=== PATIENT | female | born 1995 | race African-American/Black ===

== ENCOUNTER 2016-11-29 10:31 | Emergency (ER) | payer OTHER ==
[2016-11-29] MEDS ORDERED: IBUPROFEN 800 MG TAB As Ordered ONE (11:48)
[2016-11-29 12:04] LABS: BASO % 0.5 % (0.0-1.0); EOS # 0.1 K/mm3 (0.0-0.50); EOS % 1.4 % (0.0-3.0); LARGE UNSTAINED CELL # 0.1 K/mm3 (0.0-0.4); LARGE UNSTAINED CELL % 1.4 % (0.0-4.0); LYMPH # 2.3 K/mm3 (1.5-6.5); LYMPH % 27.6 % (24.0-44.0); MEAN CORPUSCULAR HEMOGLOBIN 22.9 pg (27.0-33.0); MEAN CORPUSCULAR HGB CONC 32.2 g/dl (32.0-36.5); MONO # 0.4 K/mm3 (0.0-0.8); MONO % 5.2 % (0.0-5.0); NEUTROPHILS # 5.4 K/mm3 (1.8-7.7); NEUTROPHILS % 63.8 % (36.0-66.0); PLATELET COUNT, AUTOMATED 238 k/mm3 (150-450); RED CELL DISTRIBUTION WIDTH 14.3 % (11.5-14.5); WHITE BLOOD COUNT 8.4 K/mm3 (4.0-10.0)
--- NOTE | 2016-11-29 12:58 | EDDOCDS ---
Nurse's Notes [facility] Name: Janusz Mathur Age: 21 yrs Sex: Female : 1995 Arrival Date: 11/29/2016 Time: 10:31 Bed PR Private MD: GALEN Lawton Diagnosis: Irregular menstruation, unspecified;Pain and other conditions associated with female genital organs and menstrual cycle Presentation: 11/29 10:37 Presenting complaint: Patient states: having bt red vaginal bleeding today - started bcj with brown drainage yesterday. has changed pad x 2 this am. denies . LMP 11/02. + cramping. denies dysuria. Risk factors: The patient reports no loss of conciousness prior to arrival. This patient has not had a hysterectomy. This patient has not begun menopause. Adult Sepsis Screening: The patient does not have new or worsening altered mentation. Patient's respiratory rate is less than 22. Systolic blood pressure is greater than 100. Patient has a qSOFA score of 0- Negative Sepsis Screen. Suicide/Homicide risk assessment- the patient denies having any suicidal and/or homicidal ideations and does not present with any other emotional, behavioral or mental health complaints. 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 Transition of care: patient was not received from another setting of care. 10:37 Acuity: TORO Level 3 bcj 10:37 Method Of Arrival: Walkin/Carried/Asstd bcj Triage Assessment: 10:40 General: Appears in no apparent distress, comfortable, Behavior is cooperative. Pain: bcj Location: abdomen Pain currently is 8 out of 10 on a pain scale. HIV screening NA for this visit Offered previously. : Reports vaginal bleeding that is bright red with clots heavy flow. 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 none - PMHx: none; - PSHx: none; - Social history: Smoking status: Patient states was never smoker of tobacco. No barriers to communication noted, The patient speaks fluent Fijian, Speaks appropriately for age. - Family history: Not pertinent. - : The pt / caregiver states he / she is not on anticoagulants. Home medication list is obtained from the patient. - Exposure Risk Screening:: None identified. Screenin:57 Screening information is obtained from the patient. Fall risk: No risks identified. ms2 Assistance ADL's: requires no assistance with activities of daily living. Abuse/DV Screen: The patient / caregiver reports he/she is: not in a situation that causes fear, pain or injury. Nutritional screening: No deficits noted. Advance Directives: Currently, there is no health care proxy. There is no active DNR order. There is no living will. There is no Power of [employer]. Advance directive information has not previously been placed in an [facility] medical record. Further advance directive information is declined. home support is adequate. Assessment: 12:55 Adult Sepsis Screening: The patient does not have new or worsening altered mentation. ms2 Patient's respiratory rate is less than 22. Systolic blood pressure is greater than 100. Patient has a qSOFA score of 0- Negative Sepsis Screen. General: Appears in no apparent distress, Behavior is cooperative. Pain: Denies pain. Neurological: Level of Consciousness is awake, alert, obeys commands. Respiratory: No deficits noted. Airway is patent Respiratory effort is even, unlabored, Respiratory pattern is regular, symmetrical. GI: Abdomen is non- distended obese. :. Derm: Skin is pink, warm & dry. Musculoskeletal: Range of motion intact in all extremities. Vital Signs: 10:33 BP 154 / 89; Pulse 82; Resp 18; Temp 98.5; Pulse Ox 100% ; Weight 79.38 kg; Height 4 elp ft. 11 in. (149.86 cm); Pain 8/10; 12:35 BP 154 / 85; Pulse 79; Resp 18; Temp 97.1(O); Pulse Ox 98% on R/A; Pain 7/10; ct3 10:33 Body Mass Index 35.35 (79.38 kg, 149.86 cm) el Vitals: 10:33 Log In Time: November 29, 2016 at 10:32. [facility] ED Course: 10:32 Patient visited by Mary Chamberlain PCA. elp 10:32 Patient moved to Waiting elp 10:33 Jered [facility] is Private Physician. elp 10:34 Patient visited by Mary Chamberlain PCA. elp 10:34 Patient moved to Pre RCE elp 10:39 Triage Initiated [facility] 10:40 Patient visited by Roosevelt Zuniga RN. bcj 10:54 Patient moved to Triage 3 ct3 11:13 Krzysztof Alejo PA-C is PHCP. ar2 11:13 Thom Fernandes MD is Attending Physician. ar2 11:13 Patient visited by Krzysztof Alejo PA-C. ar2 11:36 Patient visited by Leni Pool PCA. ct3 11:36 UA Sent. ct3 11:36 CBC with Diff Sent. ct3 11:52 Patient moved to TR1 ms2 12:05 [facility] Payment Agreement was scanned into [employer] and attached to record. lg 12:09 Patient visited by Leni Pool PCA. ct3 12:19 Patient moved to PR / 25 ct3 12:36 Patient visited by Leni Pool PCA. ct3 12:43 Jered [facility] is Referral Physician. ar2 12:43 Javan Betancourt OB is Referral Physician. ar2 12:56 The patient / caregiver is instructed regarding the plan of care and ED course. ms2 12:56 No IV's were initiated during this patient's visit. No procedures done that require ms2 assistance. Administered Medications: 11:50 Drug: Ibuprofen 800 mg Route: PO; ms2 Point of Care Testing: Urine : 11:36 hCG Reading: Negative; Control Reading: Positive; ct3 Ranges: Order Results: Lab Order: CBC with Diff; SPEC'M 11/29/16 11:35 Test: WHITE BLOOD COUNT; Value: 8.4; Range: 4.0-10.0; Units: K/mm3; Status: F Test: RED BLOOD COUNT; Value: 5.40; Range: 4.00-5.40; Units: M/mm3; Status: F Test: HEMOGLOBIN; Value: 12.3; Range: 12.0-16.0; Units: g/dl; Status: F Test: HEMATOCRIT; Value: 38.3; Range: 36.0-47.0; Units: %; Status: F Test: MEAN CORPUSCULAR VOLUME; Value: 71.0; Range: 80.0-96.0; Abnormal: Below low normal; Units: fl; Status: F Test: MEAN CORPUSCULAR HEMOGLOBIN; Value: 22.9; Range: 27.0-33.0; Abnormal: Below low normal; Units: pg; Status: F Test: MEAN CORPUSCULAR HGB CONC; Value: 32.2; Range: 32.0-36.5; Units: g/dl; Status: F Test: RED CELL DISTRIBUTION WIDTH; Value: 14.3; Range: 11.5-14.5; Units: %; Status: F Test: PLATELET COUNT, AUTOMATED; Value: 238; Range: 150-450; Units: k/mm3; Status: F Test: NEUTROPHILS %; Value: 63.8; Range: 36.0-66.0; Units: %; Status: F Test: LYMPH %; Value: 27.6; Range: 24.0-44.0; Units: %; Status: F Test: MONO %; Value: 5.2; Range: 0.0-5.0; Abnormal: Above high normal; Units: %; Status: F Test: EOS %; Value: 1.4; Range: 0.0-3.0; Units: %; Status: F Test: BASO %; Value: 0.5; Range: 0.0-1.0; Units: %; Status: F Test: LARGE UNSTAINED CELL %; Value: 1.4; Range: 0.0-4.0; Units: %; Status: F Test: NEUTROPHILS #; Value: 5.4; Range: 1.8-7.7; Units: K/mm3; Status: F Test: LYMPH #; Value: 2.3; Range: 1.5-6.5; Units: K/mm3; Status: F Test: MONO #; Value: 0.4; Range: 0.0-0.8; Units: K/mm3; Status: F Test: EOS #; Value: 0.1; Range: 0.0-0.50; Units: K/mm3; Status: F Test: BASO #; Value: 0.0; Range: 0.0-0.2; Units: K/mm3; Status: F Test: LARGE UNSTAINED CELL #; Value: 0.1; Range: 0.0-0.4; Units: K/mm3; Status: F Lab Order: UA; SPEC'M 11/29/16 11:35 Test: APPEARANCE, URINE; Value: CLOUDY; Range: CLEAR; Abnormal: Above high normal; Status: F Test: COLOR, URINE; Value: YELLOW; Range: YELLOW; Status: F Test: PH,URINE; Value: 8.0; Range: 5.0-9.0; Units: UNITS; Status: F Test: SPECIFIC GRAVITY URINE AUTO; Value: 1.014; Range: 1.002-1.035; Status: F Test: PROTEIN, URINE AUTO; Value: 1+; Range: NEGATIVE; Abnormal: Above high normal; Units: mg/dL; Status: F Test: GLUCOSE, URINE (UA) AUTO; Value: NEGATIVE; Range: NEGATIVE; Units: mg/dL; Status: F Test: KETONE, URINE AUTO; Value: NEGATIVE; Range: NEGATIVE; Units: mg/dL; Status: F Test: UROBILINOGEN, URINE AUTO; Value: 0.2; Range: 0.0-2.0; Units: mg/dL; Status: F Test: BILIRUBIN, URINE AUTO; Value: NEGATIVE; Range: NEGATIVE; Status: F Test: NITRITE, URINE AUTO; Value: NEGATIVE; Range: NEGATIVE; Status: F Test: LEUKOCYTE ESTERASE, URINE AUTO; Value: TRACE; Range: NEGATIVE; Abnormal: Above high normal; Status: F Test: BLOOD, URINE BLOOD; Value: 3+; Range: NEGATIVE; Abnormal: Above high normal; Status: F Test: WBC, URINE AUTO; Value: 8; Range: 0-3; Abnormal: Above high normal; Units: /HPF; Status: F Test: RBC, URINE AUTO; Value: TNTC; Range: 0-3; Abnormal: Above high normal; Units: /HPF; Status: F Test: BACTERIA, URINE AUTO; Value: NEGATIVE; Range: NEGATIVE; Status: F Test: SQUAMOUS EPITHELIAL CELL UR AU; Value: 0; Range: 0-6; Units: /HPF; Status: F Test: HYALINE CAST, URINE AUTO; Value: 0; Range: 0-1; Units: /LPF; Status: F Outcome: 12:43 Discharge ordered by Provider. ar2 12:56 Discharge Assessment: patient administered narcotics - no. The following High Risk ms2 Discharge criteria are identified: None. Discharged to home ambulatory, with significant other. Condition: stable. Discharge instructions given to patient, Instructed on discharge instructions, follow up and referral plans. medication usage, Demonstrated understanding of instructions, medications, Pt was receptive of discharge instructions/ teaching. Prescriptions given X one faxed. No special radiology studies were completed. Property sent home with patient. 12:58 Patient left the ED. ms2 Signatures: Ilya Ha RN RN ms2 Roosevelt Zuniga RN RN Jareth Sy, Froylan Reg lg Krzysztof Alejo, PAULO BATES ar2 Pool, Leni, [employer] [facility] [employer] ct3 Patchen, Mary, [employer] [facility] [employer] elp MTDD
--- NOTE | 2016-11-29 12:58 | EDDOCDS ---
Physician Documentation [facility] [place] Name: Janusz Mathur Age: 21 yrs Sex: Female : 1995 Arrival Date: 11/29/2016 Time: 10:31 Bed PR / Private MD: GALEN Lawton Disposition: 11/29/16 12:43 Discharged to Home/Self Care. Impression: Irregular menstruation, unspecified, Pain and other conditions associated with female genital organs and menstrual cycle. - Condition is Stable. - Discharge Instructions: Menorrhagia, Metrorrhagia. - Prescriptions for Ibuprofen 800 mg Oral Tablet - take 1 tablet by ORAL route every 8 hours As needed take with food; 30 tablet. - Medication Reconciliation, Local Pharmacy Hours form. - Follow up: GALEN Lawton; When: Call to arrange an appointment; Reason: Continuance of care. Follow up: Javan Betancourt, OB; When: As needed; Reason: Recheck today's complaints, To establish care. - Problem is new. - Symptoms are unchanged. Historical: - Allergies: no known allergies; - Home Meds: 1. none - PMHx: none; - PSHx: none; - Social history: Smoking status: Patient states was never smoker of tobacco. No barriers to communication noted, The patient speaks fluent Martiniquais, Speaks appropriately for age. - Family history: Not pertinent. - : The pt / caregiver states he / she is not on anticoagulants. Home medication list is obtained from the patient. - Exposure Risk Screening:: None identified. 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 11 in. (149.86 cm); Pain 8/10; 12:35 BP 154 / 85; Pulse 79; Resp 18; Temp 97.1(O); Pulse Ox 98% on R/A; Pain 7/10; ct3 10:33 Body Mass Index 35.35 (79.38 kg, 149.86 cm) elp MDM: 11:25 UCG by Nursing ordered. ar2 11:25 Ibuprofen 800 mg PO once; ADMINISTER IF NEGATIVE UCG ordered. ar2 11:26 CBC with Diff Ordered. EDMS 11:26 UA Ordered. EDMS 12:04 Financial registration complete. lg 12:05 [facility] Payment Agreement was scanned into [employer] and attached to record. lg 12:41 CBC with Diff Reviewed. ar2 12:41 UA Reviewed. ar2 Point of Care Testing: Urine : 11:36 hCG Reading: Negative; Control Reading: Positive; ct3 Ranges: Administered Medications: 11:50 Drug: Ibuprofen 800 mg Route: PO; ms2 Signatures: Dispatcher [employer] EDMS Ilya Ha RN RN ms2 Roosevelt Zuniga RN RN Jareth Sy, Reg Reg lg Krzysztof Alejo, PAULO PAKeren ar2 The chart was reviewed and I authenticate all verbal orders and agree with the evaluation and treatment provided.Attachments: 12:05 [facility] Payment Agreement lg MTDD
--- NOTE | 2016-12-01 13:58 | EDDOCDS ---
Nurse's Notes [facility] Name: Janusz Mathur Age: 21 yrs Sex: Female : 1995 Arrival Date: 11/29/2016 Time: 10:31 Bed PR Private MD: GALEN Lawton Diagnosis: Irregular menstruation, unspecified;Pain and other conditions associated with female genital organs and menstrual cycle Presentation: 11/29 10:37 Presenting complaint: Patient states: having bt red vaginal bleeding today - started bcj with brown drainage yesterday. has changed pad x 2 this am. denies . LMP 11/02. + cramping. denies dysuria. Risk factors: The patient reports no loss of conciousness prior to arrival. This patient has not had a hysterectomy. This patient has not begun menopause. Adult Sepsis Screening: The patient does not have new or worsening altered mentation. Patient's respiratory rate is less than 22. Systolic blood pressure is greater than 100. Patient has a qSOFA score of 0- Negative Sepsis Screen. Suicide/Homicide risk assessment- the patient denies having any suicidal and/or homicidal ideations and does not present with any other emotional, behavioral or mental health complaints. 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 Transition of care: patient was not received from another setting of care. 10:37 Acuity: TORO Level 3 bcj 10:37 Method Of Arrival: Walkin/Carried/Asstd bcj Triage Assessment: 10:40 General: Appears in no apparent distress, comfortable, Behavior is cooperative. Pain: bcj Location: abdomen Pain currently is 8 out of 10 on a pain scale. HIV screening NA for this visit Offered previously. : Reports vaginal bleeding that is bright red with clots heavy flow. 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 none - PMHx: none; - PSHx: none; - Social history: Smoking status: Patient states was never smoker of tobacco. No barriers to communication noted, The patient speaks fluent Norwegian, Speaks appropriately for age. - Family history: Not pertinent. - : The pt / caregiver states he / she is not on anticoagulants. Home medication list is obtained from the patient. - Exposure Risk Screening:: None identified. Screenin:57 Screening information is obtained from the patient. Fall risk: No risks identified. ms2 Assistance ADL's: requires no assistance with activities of daily living. Abuse/DV Screen: The patient / caregiver reports he/she is: not in a situation that causes fear, pain or injury. Nutritional screening: No deficits noted. Advance Directives: Currently, there is no health care proxy. There is no active DNR order. There is no living will. There is no Power of Credit Checker. Advance directive information has not previously been placed in an [facility] medical record. Further advance directive information is declined. home support is adequate. Assessment: 12:55 Adult Sepsis Screening: The patient does not have new or worsening altered mentation. ms2 Patient's respiratory rate is less than 22. Systolic blood pressure is greater than 100. Patient has a qSOFA score of 0- Negative Sepsis Screen. General: Appears in no apparent distress, Behavior is cooperative. Pain: Denies pain. Neurological: Level of Consciousness is awake, alert, obeys commands. Respiratory: No deficits noted. Airway is patent Respiratory effort is even, unlabored, Respiratory pattern is regular, symmetrical. GI: Abdomen is non- distended obese. :. Derm: Skin is pink, warm & dry. Musculoskeletal: Range of motion intact in all extremities. Vital Signs: 10:33 BP 154 / 89; Pulse 82; Resp 18; Temp 98.5; Pulse Ox 100% ; Weight 79.38 kg; Height 4 elp ft. 11 in. (149.86 cm); Pain 8/10; 12:35 BP 154 / 85; Pulse 79; Resp 18; Temp 97.1(O); Pulse Ox 98% on R/A; Pain 7/10; ct3 10:33 Body Mass Index 35.35 (79.38 kg, 149.86 cm) el Vitals: 10:33 Log In Time: November 29, 2016 at 10:32. [facility] ED Course: 10:32 Patient visited by Mary Chamberlain PCA. elp 10:32 Patient moved to Waiting elp 10:33 Jered [facility] is Private Physician. elp 10:34 Patient visited by Mary Chamberlain PCA. elp 10:34 Patient moved to Pre RCE elp 10:[address] [facility] 10:40 Patient visited by Roosevelt Zuniga RN. bcj 10:54 Patient moved to Triage 3 ct3 11:13 Krzysztof Alejo PA-C is PHCP. ar2 11:13 Thom Fernandes MD is Attending Physician. ar2 11:13 Patient visited by Krzysztof Alejo PA-C. ar2 11:36 Patient visited by Leni Pool PCA. ct3 11:36 UA Sent. ct3 11:36 CBC with Diff Sent. ct3 11:52 Patient moved to TR1 ms2 12:05 [facility] Payment Agreement was scanned into [employer] and attached to record. lg 12:09 Patient visited by Leni Pool PCA. ct3 12:19 Patient moved to PR1 / 25 ct3 12:36 Patient visited by Leni Pool PCA. ct3 12:43 Jered [facility] is Referral Physician. ar2 12:43 Javan Betancourt OB is Referral Physician. ar2 12:56 The patient / caregiver is instructed regarding the plan of care and ED course. ms2 12:56 No IV's were initiated during this patient's visit. No procedures done that require ms2 assistance. 14:18 T-Sheet-- Draft Copy was scanned into [employer] and attached to record. gb Administered Medications: 11:50 Drug: Ibuprofen 800 mg Route: PO; ms2 Point of Care Testing: Urine : 11:36 hCG Reading: Negative; Control Reading: Positive; ct3 Ranges: Order Results: Lab Order: CBC with Diff; SPEC'M 11/29/16 11:35 Test: WHITE BLOOD COUNT; Value: 8.4; Range: 4.0-10.0; Units: K/mm3; Status: F Test: RED BLOOD COUNT; Value: 5.40; Range: 4.00-5.40; Units: M/mm3; Status: F Test: HEMOGLOBIN; Value: 12.3; Range: 12.0-16.0; Units: g/dl; Status: F Test: HEMATOCRIT; Value: 38.3; Range: 36.0-47.0; Units: %; Status: F Test: MEAN CORPUSCULAR VOLUME; Value: 71.0; Range: 80.0-96.0; Abnormal: Below low normal; Units: fl; Status: F Test: MEAN CORPUSCULAR HEMOGLOBIN; Value: 22.9; Range: 27.0-33.0; Abnormal: Below low normal; Units: pg; Status: F Test: MEAN CORPUSCULAR HGB CONC; Value: 32.2; Range: 32.0-36.5; Units: g/dl; Status: F Test: RED CELL DISTRIBUTION WIDTH; Value: 14.3; Range: 11.5-14.5; Units: %; Status: F Test: PLATELET COUNT, AUTOMATED; Value: 238; Range: 150-450; Units: k/mm3; Status: F Test: NEUTROPHILS %; Value: 63.8; Range: 36.0-66.0; Units: %; Status: F Test: LYMPH %; Value: 27.6; Range: 24.0-44.0; Units: %; Status: F Test: MONO %; Value: 5.2; Range: 0.0-5.0; Abnormal: Above high normal; Units: %; Status: F Test: EOS %; Value: 1.4; Range: 0.0-3.0; Units: %; Status: F Test: BASO %; Value: 0.5; Range: 0.0-1.0; Units: %; Status: F Test: LARGE UNSTAINED CELL %; Value: 1.4; Range: 0.0-4.0; Units: %; Status: F Test: NEUTROPHILS #; Value: 5.4; Range: 1.8-7.7; Units: K/mm3; Status: F Test: LYMPH #; Value: 2.3; Range: 1.5-6.5; Units: K/mm3; Status: F Test: MONO #; Value: 0.4; Range: 0.0-0.8; Units: K/mm3; Status: F Test: EOS #; Value: 0.1; Range: 0.0-0.50; Units: K/mm3; Status: F Test: BASO #; Value: 0.0; Range: 0.0-0.2; Units: K/mm3; Status: F Test: LARGE UNSTAINED CELL #; Value: 0.1; Range: 0.0-0.4; Units: K/mm3; Status: F Lab Order: UA; SPEC'M 01/20/17 11:35 Test: APPEARANCE, URINE; Value: CLOUDY; Range: CLEAR; Abnormal: Above high normal; Status: F Test: COLOR, URINE; Value: YELLOW; Range: YELLOW; Status: F Test: PH,URINE; Value: 8.0; Range: 5.0-9.0; Units: UNITS; Status: F Test: SPECIFIC GRAVITY URINE AUTO; Value: 1.014; Range: 1.002-1.035; Status: F Test: PROTEIN, URINE AUTO; Value: 1+; Range: NEGATIVE; Abnormal: Above high normal; Units: mg/dL; Status: F Test: GLUCOSE, URINE (UA) AUTO; Value: NEGATIVE; Range: NEGATIVE; Units: mg/dL; Status: F Test: KETONE, URINE AUTO; Value: NEGATIVE; Range: NEGATIVE; Units: mg/dL; Status: F Test: UROBILINOGEN, URINE AUTO; Value: 0.2; Range: 0.0-2.0; Units: mg/dL; Status: F Test: BILIRUBIN, URINE AUTO; Value: NEGATIVE; Range: NEGATIVE; Status: F Test: NITRITE, URINE AUTO; Value: NEGATIVE; Range: NEGATIVE; Status: F Test: LEUKOCYTE ESTERASE, URINE AUTO; Value: TRACE; Range: NEGATIVE; Abnormal: Above high normal; Status: F Test: BLOOD, URINE BLOOD; Value: 3+; Range: NEGATIVE; Abnormal: Above high normal; Status: F Test: WBC, URINE AUTO; Value: 8; Range: 0-3; Abnormal: Above high normal; Units: /HPF; Status: F Test: RBC, URINE AUTO; Value: TNTC; Range: 0-3; Abnormal: Above high normal; Units: /HPF; Status: F Test: BACTERIA, URINE AUTO; Value: NEGATIVE; Range: NEGATIVE; Status: F Test: SQUAMOUS EPITHELIAL CELL UR AU; Value: 0; Range: 0-6; Units: /HPF; Status: F Test: HYALINE CAST, URINE AUTO; Value: 0; Range: 0-1; Units: /LPF; Status: F Outcome: 12:43 Discharge ordered by Provider. ar2 12:56 Discharge Assessment: patient administered narcotics - no. The following High Risk ms2 Discharge criteria are identified: None. Discharged to home ambulatory, with significant other. Condition: stable. Discharge instructions given to patient, Instructed on discharge instructions, follow up and referral plans. medication usage, Demonstrated understanding of instructions, medications, Pt was receptive of discharge instructions/ teaching. Prescriptions given X one faxed. No special radiology studies were completed. Property sent home with patient. 12:58 Patient left the ED. ms2 Signatures: Ilya Ha,RN RN ms2 Roosevelt Zuniga RN RN Katie Goldstein, Reg Reg gb Jareth Link, Reg Reg lg Krzysztof Alejo, PA-Cristobal PA-Cristobal ar2 Pool, Leni, CHICKEN BONER CHICKEN BONER ct3 Patchen, Mary, CHICKEN BONER CHICKEN BONER elp Chart Complete MTDD
--- NOTE | 2016-12-01 13:58 | EDDOCDS ---
Physician Documentation [facility] Name: Janusz Mathur Age: 21 yrs Sex: Female : 1995 Arrival Date: 11/29/2016 Time: 10:31 Bed PR / Private MD: GALEN Lawton Disposition: 11/29/16 12:43 Discharged to Home/Self Care. Impression: Irregular menstruation, unspecified, Pain and other conditions associated with female genital organs and menstrual cycle. - Condition is Stable. - Discharge Instructions: Menorrhagia, Metrorrhagia. - Prescriptions for Ibuprofen 800 mg Oral Tablet - take 1 tablet by ORAL route every 8 hours As needed take with food; 30 tablet. - Medication Reconciliation, Local Pharmacy Hours form. - Follow up: GALEN Lawton; When: Call to arrange an appointment; Reason: Continuance of care. Follow up: Javan Betancourt, OB; When: As needed; Reason: Recheck today's complaints, To establish care. - Problem is new. - Symptoms are unchanged. Historical: - Allergies: no known allergies; - Home Meds: 1. none - PMHx: none; - PSHx: none; - Social history: Smoking status: Patient states was never smoker of tobacco. No barriers to communication noted, The patient speaks fluent Luxembourger, Speaks appropriately for age. - Family history: Not pertinent. - : The pt / caregiver states he / she is not on anticoagulants. Home medication list is obtained from the patient. - Exposure Risk Screening:: None identified. 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 11 in. (149.86 cm); Pain 8/10; 12:35 BP 154 / 85; Pulse 79; Resp 18; Temp 97.1(O); Pulse Ox 98% on R/A; Pain 7/10; ct3 10:33 Body Mass Index 35.35 (79.38 kg, 149.86 cm) elp MDM: 11:25 UCG by Nursing ordered. ar2 11:25 Ibuprofen 800 mg PO once; ADMINISTER IF NEGATIVE UCG ordered. ar2 11:26 CBC with Diff Ordered. EDMS 11:26 UA Ordered. EDMS 12:04 Financial registration complete. lg 12:05 [facility] Payment Agreement was scanned into [employer] and attached to record. lg 12:41 CBC with Diff Reviewed. ar2 12:41 UA Reviewed. ar2 14:18 T-Sheet-- Draft Copy was scanned into [employer] and attached to record. gb Point of Care Testing: Urine : 11:36 hCG Reading: Negative; Control Reading: Positive; ct3 Ranges: Administered Medications: 11:50 Drug: Ibuprofen 800 mg Route: PO; ms2 Signatures: Dispatcher [employer] EDMS Ilya Ha RN RN ms2 Roosevelt Zuniga RN RN Katie Goldstein, Reg Reg gb Jareth Link, Reg Reg lg Krzysztof Alejo, PAKeren PAKeren ar2 The chart was reviewed and I authenticate all verbal orders and agree with the evaluation and treatment provided.Attachments: 12:05 [facility] Payment Agreement lg 14:18 T-Sheet-- Draft Copy Chart Complete MTDD
--- NOTE | 2016-12-01 13:58 | EDDOCDS ---
Physician Documentation [facility] Name: Janusz Mathur Age: 21 yrs Sex: Female : 1995 Arrival Date: 11/29/2016 Time: 10:31 Bed PR / Private MD: GALEN Lawton Disposition: 11/29/16 12:43 Discharged to Home/Self Care. Impression: Irregular menstruation, unspecified, Pain and other conditions associated with female genital organs and menstrual cycle. - Condition is Stable. - Discharge Instructions: Menorrhagia, Metrorrhagia. - Prescriptions for Ibuprofen 800 mg Oral Tablet - take 1 tablet by ORAL route every 8 hours As needed take with food; 30 tablet. - Medication Reconciliation, Local Pharmacy Hours form. - Follow up: GALEN Lawton; When: Call to arrange an appointment; Reason: Continuance of care. Follow up: Javan Betancourt, OB; When: As needed; Reason: Recheck today's complaints, To establish care. - Problem is new. - Symptoms are unchanged. Historical: - Allergies: no known allergies; - Home Meds: 1. none - PMHx: none; - PSHx: none; - Social history: Smoking status: Patient states was never smoker of tobacco. No barriers to communication noted, The patient speaks fluent Peruvian, Speaks appropriately for age. - Family history: Not pertinent. - : The pt / caregiver states he / she is not on anticoagulants. Home medication list is obtained from the patient. - Exposure Risk Screening:: None identified. 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 11 in. (149.86 cm); Pain 8/10; 12:35 BP 154 / 85; Pulse 79; Resp 18; Temp 97.1(O); Pulse Ox 98% on R/A; Pain 7/10; ct3 10:33 Body Mass Index 35.35 (79.38 kg, 149.86 cm) elp MDM: 11:25 UCG by Nursing ordered. ar2 11:25 Ibuprofen 800 mg PO once; ADMINISTER IF NEGATIVE UCG ordered. ar2 11:26 CBC with Diff Ordered. EDMS 11:26 UA Ordered. EDMS 12:04 Financial registration complete. lg 12:05 [facility] Payment Agreement was scanned into [email or web address] and attached to record. lg 12:41 CBC with Diff Reviewed. ar2 12:41 UA Reviewed. ar2 14:18 T-Sheet-- Draft Copy was scanned into [email or web address] and attached to record. gb Point of Care Testing: Urine : 11:36 hCG Reading: Negative; Control Reading: Positive; ct3 Ranges: Administered Medications: 11:50 Drug: Ibuprofen 800 mg Route: PO; ms2 Signatures: Dispatcher [employer] EDMS Ilya Ha RN RN ms2 Roosevelt Zuniga RN RN Katie Goldstein, Reg Reg gb Jareth Link, Reg Reg lg Krzysztof Aleoj, PAKeren PAKeren ar2 The chart was reviewed and I authenticate all verbal orders and agree with the evaluation and treatment provided.Attachments: 12:05 [facility] Payment Agreement lg 14:18 T-Sheet-- Draft Copy Chart Complete MTDD
== END 2016-11-29 12:58 | disposition home or self-care (01) ==
LOC: M ED 10:31
DX: N94.89 Other specified conditions associated with female genital organs and menstrual cycle (principal); N92.6 Irregular menstruation, unspecified

== ENCOUNTER → 2017-03-14 | Outpatient (CLI) | payer OTHER ==
--- NOTE | 2017-03-15 07:24 | REP ---
CERVICAL SPINE, EIGHT VIEWS: HISTORY: Sprain. There is no acute fracture or subluxation. The intervertebral discs are normal in height. The neural foramina are patent. There is slight loss of the normal lordotic curve. IMPRESSION: There is no acute fracture or subluxation. Unreviewed
--- NOTE | 2017-03-15 07:25 | REP ---
THORACIC SPINE, THREE VIEWS: HISTORY: Sprain. There is no acute fracture or subluxation. The intervertebral discs are normal in height. IMPRESSION: There is no acute fracture or subluxation. Unreviewed
--- NOTE | 2017-03-15 07:37 | REP ---
LUMBAR SPINE, FIVE VIEWS: HISTORY: Sprain. There is no acute fracture or subluxation. The intervertebral discs are normal in height. The facet joints are normal in appearance. IMPRESSION: There is no acute fracture or subluxation. Unreviewed
== END ==
LOC: M WUC 14:43
PROVIDERS: ATTEND Physician Assistant
DX: S33.5XXA Sprain of ligaments of lumbar spine, initial encounter (principal); X58.XXXA Exposure to other specified factors, initial encounter; Y92.89 Other specified places as the place of occurrence of the external cause; Y93.89 Activity, other specified; Y99.8 Other external cause status

== ENCOUNTER 2017-06-03 23:26 | Emergency (ER) | payer OTHER ==
[~2017-06-03] VITALS: Ht 149.9 cm; Wt 83.2 kg
[2017-06-04] MEDS ORDERED: AUGM500T34 PO (00:12)
[2017-06-04] MEDS ORDERED: AUGMENTIN 875 MG TAB PO ONE (00:15)
[2017-06-04 00:33] VITALS: BP 139/93
== END 2017-06-04 00:39 | disposition home or self-care (01) ==
LOC: M ED 23:26
DX: J02.9 Acute pharyngitis, unspecified (principal)

== ENCOUNTER 2017-08-27 08:43 | Emergency (ER) | payer OTHER ==
[~2017-08-27] VITALS: Ht 149.9 cm; Wt 75.9 kg
[~2017-08-27 08:43] MED LIST: AUGM500T34 PO
[2017-08-27] MEDS ORDERED: ONDANSETRON 4 MG ORAL DISINTEGRATING TAB (S0181) PO ONE (09:45)
[2017-08-27] MEDS ORDERED: ZOFR4TAB3 PO (10:05)
[2017-08-27 10:19] VITALS: BP 126/72
== END 2017-08-27 10:20 | disposition home or self-care (01) ==
LOC: M ED 08:43
DX: R11.2 Nausea with vomiting, unspecified (principal)